=== PATIENT | male | born 1965 | race Caucasian/White ===

== ENCOUNTER → 2018-07-17 10:42 | Outpatient (CLI) | payer MEDICARE | END | disposition home or self-care (01) | LOC: D.RT 10:42 | PROVIDERS: ATTEND Internal Medicine Pulmonary Disease | DX: J44.9 Chronic obstructive pulmonary disease, unspecified (principal) ==

== ENCOUNTER → 2018-11-22 08:58 | Outpatient (CLI) | payer MEDICARE ==
--- NOTE | 2018-11-24 10:32 | EC ---
PATIENT:ROSAURA TORREZ DATE OF SERVICE: 11/22/18 SEX: M MEDICAL RECORD: [id number] DATE OF : 65 LOCATION:[facility] AGE OF PATIENT: 53 ADMISSION DATE: 11/22/18 REFERRING PHYSICIAN: INTERPRETING PHYSICIAN: LOREE CAMERON MD ECHOCARDIOGRAM REPORT ECHO CHARGES 4 ECHO COMPLETE Date: 11/22/18 CLINICAL DIAGNOSIS: FATIGUE/SVT H/O HTN ECHOCARDIOGRAPHIC MEASUREMENTS (adult normal given) AC root (d.<3.7cm) 3.3 cm LV Septum d (<1.2 cm> 1.1 cm Valve Excursion 1.9 cm LV Septum (systole) 1.7 cm Left Atria (s.<4.0cm> 3.7 cm LVPW d(<1.2cm) 1.1 cm RV (d.<2.3cm) 2.6 cm LVPW (sytole) 1.6 cm LV diastole(<5.6CM) 4.9 cm MV E-F(>70mm/sec) cm LV systole 2.9 cm LVOT Diameter 2.0 cm MV exc.(>10mm) cm Est.ejection fraction (50-75%) % DOPPLER: LVIT cm/sec A 45.0 cm/sec E 37.0 cm/sec LA cm/sec RVSP 21.0 mmHg LVOT 70.0 cm/sec AOP1/2T m/s Asc. Ao 126 cm/sec RVOT 42.0 cm/sec RA cm/sec PA 77.0 cm/sec AV Gradient Peak 6.4 mmHg AV Mean 3.1 mmHg AV Area 2.1 cm MV Gradient Peak 2.2 mmHg MV Mean 0.84 mmHg MV Area cm COMMENTS: OP - HC Clinical Educator: Luda SANTO ANA MARIA Bed Manager: 3 Dr. Jensen TAPE# PACS Pericardial Effusion N DATE OF SERVICE: 11/22/2018 Adequate 2-D echo, color-flow and spectral Doppler, and M-mode. No LVH. LV internal dimensions are normal. Wall motion is normal. EF is equal to 55%. Aortic valve is tricuspid. No evidence of stenosis by Doppler interrogation. Left atrium is normal at 3.7 cm. Mitral valve shows no prolapse. Trace MR. Right-sided chambers are grossly normal. Trace TR. TRANSINT:[id number] Voice Confirmation ID: [id number] DOCUMENT ID: [id number] ECHOCARDIOGRAM REPORT [id number] ROSAURA TORREZ,LOREE Duke MD at 1032 CC: [id number] DICTATION DATE: 11/23/18 1350 [employer] [facility] OPERATOR: 11/23/18 1605 DEP CLI 11/22/18 [place] [id number] [place] [id number]
== END | disposition home or self-care (01) ==
LOC: D.HCCARDIO 08:30
PROVIDERS: ATTEND Internal Medicine Interventional Cardiology
DX: I10 Essential (primary) hypertension (principal)

== ENCOUNTER → 2019-11-28 10:42 | Outpatient (CLI) | payer MEDICARE ==
--- NOTE | 2019-11-30 09:27 | EC ---
PATIENT:ROSAURA TORREZ DATE OF SERVICE: 11/28/19 SEX: M MEDICAL RECORD: [id number] DATE OF : 65 [facility] AGE OF PATIENT: 54 ADMISSION DATE: 11/28/19 REFERRING PHYSICIAN: INTERPRETING PHYSICIAN: LOREE CAMERON MD ECHOCARDIOGRAM REPORT ECHO CHARGES 4 ECHO COMPLETE Date: 11/28/19 CLINICAL DIAGNOSIS: ASSESS LVH/EF ECHOCARDIOGRAPHIC MEASUREMENTS (adult normal given) AC root (d.<3.7cm) 3.4 cm LV Septum d (<1.2 cm> 1.2 cm Valve Excursion 1.8 cm LV Septum (systole) 1.4 cm Left Atria (s.<4.0cm> 4.0 cm LVPW d(<1.2cm) 1.2 cm RV (d.<2.3cm) 4.2 cm LVPW (sytole) 1.5 cm LV diastole(<5.6CM) 4.0 cm MV E-F(>70mm/sec) cm LV systole 2.3 cm LVOT Diameter 1.9 cm MV exc.(>10mm) 1.7 cm Est.ejection fraction (50-75%) % DOPPLER: LVIT cm/sec A 44.0 cm/sec E 52.0 cm/sec LA cm/sec RVSP 27 mmHg LVOT 68 cm/sec AOP1/2T m/s Asc. Ao 110 cm/sec RVOT 75 cm/sec RA cm/sec PA 121 cm/sec AV Gradient Peak 4.88 mmHg AV Mean 2.51 mmHg AV Area 1.7 cm MV Gradient Peak 1.96 mmHg MV Mean 0.90 mmHg MV Area cm COMMENTS: Box Coverer Hand: 2 LEONELA HARTMAN Track Sweeper: 3 Dr. Jensen TAPE# PACS Pericardial Effusion N DATE OF SERVICE: Adequate 2D, color flow imaging, spectral Doppler, and M-Mode. Borderline LVH. LV internal dimension is normal. Wall motion is normal. EF is greater than or equal to 55%. Aortic valve is tricuspid. No evidence of stenosis by Doppler interrogation. Left atrium is normal. Mitral valve shows no prolapse. Trace MR. Right-sided chambers are grossly normal. Trace TR. TRANSINT:[id number] Voice Confirmation ID: [id number] DOCUMENT ID: [id number] ECHOCARDIOGRAM REPORT [id number] SHAN,ROSAURA LOREE MEEHAN MD at 0927 CC: [id number] DICTATION DATE: 11/29/19 1428 BOAT DIESEL MOTOR MECHANIC: 11/29/19 2153 DEP CLI 11/28/19 [place] [id number] [place] [address]
== END | disposition home or self-care (01) ==
LOC: D.HCCECHO 10:42
PROVIDERS: ATTEND Internal Medicine Interventional Cardiology
DX: R06.02 Shortness of breath (principal)

== ENCOUNTER → 2019-12-31 09:39 | Outpatient (CLI) | payer MEDICARE | END | disposition home or self-care (01) | LOC: D.HCCARDIO 09:39 | PROVIDERS: ATTEND Internal Medicine Cardiovascular Disease | DX: R94.31 Abnormal electrocardiogram [ECG] [EKG] (principal) ==